=== PATIENT | male | born 1940 | race Caucasian/White ===

== ENCOUNTER 2017-09-23 10:47 | Emergency (ER) | payer OTHER ==
[2017-09-23 10:52] VITALS: BMI 33.6
[2017-09-23] MEDS ORDERED: AFRIN NASAL SPRAY ONE (12:05)
--- NOTE | 2017-09-23 12:10 | DR.NOSEBLE ---
HPI - Primary Care Physician Primary Care Physician: NFD - Complaints Chief Complaint:: PT. C/O NOSEBLEED TO LEFT NARE WHICH BEGAN THIS MORNING, SPONTANEOUSLY. BLEEDING IS CONTROLLED AT TIME OF TRIAGE. - Reviewed Nurses Notes Reviewed: Yes - Source History Provided: Patient - Mode of Arrival Mode of Arrival: Ambulatory - Timing Onset of Chief Complaint: 09/23/17 PMH - PMH Past Medical History: Yes Past Medical History: GERD Past Surgical History: Yes Surgical History: Ortho Surgery - Family History History of Family Medical Conditions: No - Social History Does patient currently use any type of tobacco product: No Have you used tobacco products in the last 12 months: No Type of Tobacco Use: None Does any household member use tobacco: No Alcohol Use: None Do you use any recreational Drugs:: No Lives With: Alone Lives Where: Home - infectious screening In the last 2 months have you had wt loss of >10#?: NO Have you had fever, night sweats or hemotysis?: No Have you traveled outside the country in the last 6 months?: No Isolation: Standard PE - Vital Signs Vitals: Temperature 97.6 F Pulse Rate 75 Respiratory Rate 18 Blood Pressure [Left Arm] 132/85 Blood Pressure 154/75 O2 Sat by Pulse Oximetry 96 ROR - Labs Reviewed Result Diagrams: 09/23/17 12:17 Laboratory: WBC 7.4 X10^3/uL (3.6-10.0) 09/23/17 12:17 RBC 5.15 X10^6/uL (4.7-6.0) 09/23/17 12:17 Hgb 14.7 g/dL (13.5-18.0) 09/23/17 12:17 Hct 43.6 % (42.0-54.0) 09/23/17 12:17 MCV 84.5 fL (80.0-100.0) 09/23/17 12:17 MCH 28.6 pg (27.0-34.0) 09/23/17 12:17 MCHC 33.8 g/dL (33.0-35.0) 09/23/17 12:17 RDW 15.0 % (11.6-16.5) 09/23/17 12:17 Plt Count 196 X10^3/uL (150.0-450.0) 09/23/17 12:17 MPV 9.4 fL (7.4-11.0) 09/23/17 12:17 Neut % (Auto) 77.9 % (42.0-75.0) H 09/23/17 12:17 Lymph % (Auto) 14.2 % (21.0-51.0) L 09/23/17 12:17 King % (Auto) 6.5 % (0.0-13.0) 09/23/17 12:17 Eos % (Auto) 1.0 % (0.9-2.9) 09/23/17 12:17 Baso % (Auto) 0.4 % (0.2-1.0) 09/23/17 12:17 Neut # (Auto) 5.8 x10^3/uL (2.2-4.8) H 09/23/17 12:17 Lymph # (Auto) 1.1 X10^3/uL (1.3-2.9) L 09/23/17 12:17 King # (Auto) 0.5 x10^3/uL (0.3-0.8) 09/23/17 12:17 Eos # (Auto) 0.1 x10^3/uL (0.0-0.2) 09/23/17 12:17 Baso # (Auto) 0.0 X10^3/uL (0.0-0.1) 09/23/17 12:17 Absolute Nucleated RBC 0.0 /100WBC 09/23/17 12:17 INR Target Range - 09/23/17 12:17 INR 0.98 (0.8-1.3) 09/23/17 12:17 APTT 27.5 SECONDS (22.9-36.5) 09/23/17 12:17 PTT Comment - 09/23/17 12:17 - Diagnosis Discharge Problem: Epistaxis - Discharge Plan Condition: Stable - Follow ups/Referrals Follow ups/Referrals: [facility] [REFERRING] - 2 days Luis Frias [STAFF PHYSICIAN] - 2 days NFD,None [Primary Care Provider] - 2 days - Instructions Instructions: Nosebleed, Adult, [id number] Additional Instructions: RETURN TO ED IF WORSE.
[2017-09-23] MEDS ORDERED: AFRIN NASAL SPRAY PRN (12:28)
[2017-09-23 12:36] LABS: BASOPHILS % (AUTO) 0.4 % (0.2-1.0); EOSINOPHILS # (AUTO) 0.1 x10^3/uL (0.0-0.2); HEMATOCRIT 43.6 % (42.0-54.0); HEMOGLOBIN 14.7 g/dL (13.5-18.0); LYMPHOCYTES # (AUTO) 1.1 X10^3/uL (1.3-2.9); LYMPHOCYTES % (AUTO) 14.2 % (21.0-51.0); MEAN CORPUSCULAR HEMOGLOBIN 28.6 pg (27.0-34.0); MEAN CORPUSCULAR HGB CONC 33.8 g/dL (33.0-35.0); MEAN CORPUSCULAR VOLUME 84.5 fL (80.0-100.0); MEAN PLATELET VOLUME 9.4 fL (7.4-11.0); MONOCYTES # (AUTO) 0.5 x10^3/uL (0.3-0.8); MONOCYTES % (AUTO) 6.5 % (0.0-13.0); NEUTROPHILS # (AUTO) 5.8 x10^3/uL (2.2-4.8); NEUTROPHILS % (AUTO) 77.9 % (42.0-75.0); PLATELET COUNT 196 X10^3/uL (150.0-450.0); RED BLOOD COUNT 5.15 X10^6/uL (4.7-6.0); WHITE BLOOD COUNT 7.4 X10^3/uL (3.6-10.0)
[2017-09-23 13:10] VITALS: BP 132/85
== END 2017-09-23 13:20 | disposition home or self-care (01) ==
LOC: ER 10:58
PROC: 2Y41X5Z Packing of Nasal Region using Packing Material (ICD-10-PCS; principal; 2017-09-23)
DX: R04.0 Epistaxis (principal)
CPT/HCPCS: 36415; 85025; 85610; 85730; 99282